=== PATIENT | female | born 1945 | race Caucasian/White ===

== ENCOUNTER 2020-02-14 08:06 | Outpatient (CLI) | payer MEDICARE, SELFPAY ==
--- NOTE | ~2020-02-14 | MM_ITS ---
EXAMINATION: MM screening [facility] BI w deena HISTORY: Screening TECHNIQUE: Craniocaudal and mediolateral oblique 3-D tomosynthesis images were obtained and synthetic 2-D images were generated. CAD analysis was submitted and interpreted. COMPARISON: Comparison to multiple prior studies sequentially, with oldest reviewed study dated 11/28. BREAST PARENCHYMAL COMPOSITION: There are scattered areas of fibroglandular density. FINDINGS: There is no evidence of suspicious mass, calcification, or architectural distortion to sugg est malignancy in either breast. There has been no suspicious interval change. IMPRESSION: 1. No mammographic evidence of malignancy. 2. Recommend routine screening mammography in one year. BI-RADS Category 1: Negative Reviewed, dictated and finalized at location A.
== END 2020-02-14 08:07 | disposition home or self-care (01) ==
LOC: ANHIMG 08:10
PROVIDERS: PCP Family Medicine; Visit Provider Physician Assistant
DX: Z12.31 Encounter for screening mammogram for malignant neoplasm of breast (principal)
CPT/HCPCS: 77063; 77067

== ENCOUNTER → 2020-03-02 14:26 | Outpatient (CLI) | payer MEDICARE, SELFPAY ==
--- NOTE | ~2020-03-02 | XR_ITS ---
EXAMINATION: XR knee LT 3V DATE: 03/02/2020 14:48 INDICATION: Left knee pain. TECHNIQUE: 3 views of left knee were obtained. COMPARISON: None. FINDINGS: There is lateral subluxation of patella. No fracture. There is moderate osteoarthritis of l ateral and patellofemoral compartments and mild osteoarthritis of medial compartment. No knee joint e ffusion. IMPRESSION: 1. Moderate left knee osteoarthritis. Reviewed, dictated and finalized at location A. 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
== END ==
PROVIDERS: PCP Family Medicine; Visit Provider Physician Assistant
DX: M17.12 Unilateral primary osteoarthritis, left knee (principal)
CPT/HCPCS: 73562

== ENCOUNTER 2021-02-24 07:54 | Outpatient (CLI) | payer MEDICARE, SELFPAY ==
--- NOTE | ~2021-02-24 | DEXA_ITS ---
Bone Density Report Name: Sherita Duke Age: 75 Sex: Female Ethnicity: White Date of : 1945 Indication: osteopenia; height loss; postmenopausal Referring Provider: HUGO WEATHERS Study: Bone densitometry was performed. Exam Date: February 24, 2021 Accession number: [id number] Bone Density: Region BMD T-score Z-score Classification AP Spine (L1, L2, L3) 0.865 -1.4 0.9 Osteopenia Femoral Neck (Left) 0.638 -1.9 0.1 Osteopenia Total Hip (Left) 0.725 -1.8 -0.1 Osteopenia Total Hip Bilateral Avg 0.740 -1.7 0.0 Osteopenia Femoral Neck (Right) 0.676 -1.6 0.4 Osteopenia Total Hip (Right) 0.753 -1.5 0.1 Osteopenia World Health Organization criteria for BMD impression classify patients as: Normal (T-score at or above -1.0), Osteopenia (T-score between -1.0 and -2.5), or Osteoporosis (T-score at or below -2.5). 10-year Fracture Risk(1): Major Osteoporotic Fracture 11% Hip Fracture 2.2% Reported Risk Factors: [place] (), Neck BMD=0.638, BMI=36.8 (1) FRAX(R) Version 3.08. Fracture probability calculated for an untreated patient. Fracture probability may be lower if the patient has received treatment. Previous Exams: Region Exam Age BMD T-score BMD Change BMD Change Date g/cm2 vs Baseline vs Previous AP Spine(L1, L2, L3) 02/24/2021 75 0.865 -1.4 0.094(12.1%)# 0.007(0.8%) 12/10/2015 70 0.859 -1.4 0.087(11.3%)# -0.016(-1.9%)# 11/28/2013 68 0.875 -1.3 0.104(13.4%)# 0.104(13.4%)# 06/11/2010 64 0.771 -2.2 Total Hip(Left) 02/24/2021 75 0.725 -1.8 -0.032(-4.2%)# -0.057(-7.3%)* 12/10/2015 70 0.782 -1.3 0.025(3.3%)# 0.004(0.5%)# 11/28/2013 68 0.778 -1.3 0.022(2.9%)# 0.022(2.9%)# 06/11/2010 64 0.756 -1.5 Total Hip(Right) 02/24/2021 75 0.753 -1.5 -0.038(-4.8%)# -0.056(-6.9%)* 12/10/2015 70 0.809 -1.1 0.018(2.2%)# 0.000(0.0%)# 11/28/2013 68 0.809 -1.1 0.018(2.3%)# 0.018(2.3%)# 06/11/2010 64 0.791 -1.2 *Denotes significance at 95% confidence level, LSC for AP Spine = 0.022 g/cm2, LSC for Total Hip = 0.027 g/cm2 Clinical Information Provided by Patient: Has used the following medications: Vitamin D, Calcium Patient maximum height was 64 Menopause Age: 52 No regular weight bearing exercise Drinks caffeinated beverages Onset of menses at age 15 Number of children 2 Impression: The patient has low bone mass, based on the Left Femoral Neck T-score
--- NOTE | ~2021-02-24 | MM_ITS ---
EXAMINATION: MM screening [facility] BI w deena HISTORY: Screening mammogram TECHNIQUE: Craniocaudal and mediolateral oblique 3-D tomosynthesis images were obtained and synthetic 2-D images were generated. CAD analysis was submitted and interpreted. COMPARISON: No prior mammogram is available for comparison at this institution. BREAST PARENCHYMAL COMPOSITION: There are scattered areas of fibroglandular density. FINDINGS: There is no evidence of suspicious mass, calcification, or architectural distortion to sugg est malignancy in either breast. There has been no suspicious interval change. IMPRESSION: 1. No mammographic evidence of malignancy. 2. Recommend routine screening mammography in one year. BI-RADS Category 1: Negative Reviewed, dictated and finalized at location A.
== END 2021-02-24 07:55 | disposition home or self-care (01) ==
LOC: ANHIMG 07:59
PROVIDERS: PCP Family Medicine; Visit Provider Family Medicine
DX: Z12.31 Encounter for screening mammogram for malignant neoplasm of breast (principal); Z78.0 Asymptomatic menopausal state; M85.89 Other specified disorders of bone density and structure, multiple sites
CPT/HCPCS: 77063; 77067; 77080

== ENCOUNTER 2022-04-11 10:40 | Outpatient (CLI) | payer MEDICARE, SELFPAY ==
--- NOTE | ~2022-04-11 | MM_ITS ---
EXAMINATION: MM screening e[facility] BI w deena HISTORY: Screening TECHNIQUE: Craniocaudal and mediolateral oblique 3-D tomosynthesis images were obtained and synthetic 2-D images were generated. CAD analysis was submitted and interpreted. COMPARISON: Comparison to multiple prior studies sequentially, with oldest reviewed study dated 12/09. BREAST PARENCHYMAL COMPOSITION: There are scattered areas of fibroglandular density. FINDINGS: There is no evidence of suspicious mass, calcification, or architectural distortion to sugg est malignancy in either breast. There has been no suspicious interval change. IMPRESSION: 1. No mammographic evidence of malignancy. 2. Recommend routine screening mammography in one year. BI-RADS Category 1: Negative Reviewed, dictated and finalized at location B. GER ERP
== END 2022-04-11 10:41 | disposition home or self-care (01) ==
LOC: ANHIMG 10:41
PROVIDERS: PCP Family Medicine; Visit Provider Family Medicine
DX: Z12.31 Encounter for screening mammogram for malignant neoplasm of breast (principal)
CPT/HCPCS: 77063; 77067

== ENCOUNTER → 2022-08-09 11:12 | Outpatient (CLI) | payer MEDICARE, SELFPAY ==
--- NOTE | ~2022-08-09 | XR_ITS ---
Left elbow Technique: AP, oblique, and lateral views were obtained. Clinical History: Pain Findings: No acute fracture or dislocation is seen. Osseous alignment is anatomic. Joint spaces are p reserved. Small coronoid process spur noted. There is no displacement of the fat pads, and soft tissu es are unremarkable. Impression: Minimal degenerative change, as above. Reviewed, dictated and finalized at location M. Impression: Minimal degenerative change, as above.
--- NOTE | ~2022-08-09 | XR_ITS ---
EXAMINATION: XR lumbar spine min 4V DATE: 08/09/2022 11:43 INDICATION: Low back pain, unspecified. TECHNIQUE: 6 views of lumbar spine were obtained. COMPARISON: None. FINDINGS: There is 19 degrees levoscoliosis of thoracolumbar spine. Vertebral body heights are normal . There is severely decreased disc height at L1-L2, mildly decreased disc height at L3-L4, and severe ly decreased disc height at L5-S1. There is multilevel severe facet joint osteoarthritis. IMPRESSION: 1. Severe lumbar spondylosis. 2. Thoracolumbar levoscoliosis. Reviewed, dictated and finalized at location A.
== END ==
PROVIDERS: PCP Family Medicine; Visit Provider Family Medicine
DX: M25.522 Pain in left elbow (principal); M47.896 Other spondylosis, lumbar region
CPT/HCPCS: 72110; 73080

== ENCOUNTER 2023-03-08 08:10 | Outpatient (CLI) | payer MEDICARE, SELFPAY ==
--- NOTE | ~2023-03-08 | US_ITS ---
US arterial ankle brachial ind INDICATION: Left lower extremity numbness. High cholesterol. TECHNIQUE: Segmental pressures and plethysmographic and Doppler waveforms of the brachial and lower e xtremity arteries were obtained. COMPARISON: None. FINDINGS: Right and left brachial artery pressures of 111 mm Hg and 114 mm Hg, respectively, are concordant (no rmal difference <= 30 mmHg). The right ankle-brachial index (MAGY) is 1.32 (normal >= 0.9-1.0). The right great toe-brachial index (TBI) is 0.48 (normal >= 0.60). The left MAGY is 1.28. The left TBI is 0.49. IMPRESSION: 1. Diminished bilateral toe brachial indices consistent with peripheral arterial disease. Reviewed, dictated and finalized at location A. ER HAND IMPRESSION: 1. Diminished bilateral toe brachial indices consistent with peripheral arteria l disease.
== END 2023-03-08 08:11 | disposition home or self-care (01) ==
PROVIDERS: PCP Family Medicine; Visit Provider Family Medicine
DX: I73.9 Peripheral vascular disease, unspecified (principal)
CPT/HCPCS: 93922

== ENCOUNTER 2023-05-02 07:34 | Outpatient (CLI) | payer MEDICARE, SELFPAY ==
--- NOTE | ~2023-05-02 | MM_ITS ---
EXAMINATION: MM screening [facility] BI w deena HISTORY: Screening mammogram TECHNIQUE: Craniocaudal and mediolateral oblique 3-D tomosynthesis images were obtained and synthetic 2-D images were generated. CAD analysis was submitted and interpreted. COMPARISON: 04/11/2022, 02/24/2021, 02/14/2020 BREAST PARENCHYMAL COMPOSITION: The breasts are almost entirely fatty. FINDINGS: No suspicious mass, calcification, or architectural distortion are identified in either franca ast to suggest malignancy. There has been no suspicious interval change. IMPRESSION: 1. No mammographic evidence of malignancy. 2. Recommend routine screening mammography in one year. BI-RADS Category 1: Negative Reviewed, dictated and finalized at location A. 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
== END 2023-05-02 07:35 | disposition home or self-care (01) ==
PROVIDERS: PCP Family Medicine; Visit Provider Family Medicine
DX: Z12.31 Encounter for screening mammogram for malignant neoplasm of breast (principal)
CPT/HCPCS: 77063; 77067

== ENCOUNTER 2023-09-22 12:39 | Outpatient (CLI) | payer MEDICARE, SELFPAY ==
--- NOTE | ~2023-09-22 | MR_ITS ---
MRI of the lumbar spine Clinical History: Back pain Technique: Axial T2-weighted images, and sagittal T1-weighted, T2-weighted, and T2 fat-sat images wer e acquired. Findings: There is no fracture or subluxation of the lumbar spine. Vertebral bodies maintain normal h eight and alignment. No bone marrow signal abnormality seen. At L1-L2, there is advanced degenerative disc narrowing. There is mild disc bulge with moderate to ad vanced facet arthropathy. No central canal stenosis. There is severe right neural foraminal narrowing and mild left neural foraminal narrowing. At L2-L3, there is minimal disc bulge and moderate facet arthropathy. No central canal stenosis. Ther e is mild bilateral neural foraminal narrowing. At L3-L4, there is mild disc bulge and severe facet arthropathy. No reymundo central canal stenosis. The re is moderate to severe left neural foraminal narrowing. Right neural foramen preserved. At L4-L5, there is diffuse disc bulge with advanced facet arthropathy. No reymundo central canal stenosi s or neural foraminal narrowing. At L5-S1, there is moderate degenerative disc narrowing with mild disc bulge and advanced facet arthr opathy. No central canal stenosis. There is moderate left neural foraminal narrowing and mild right n eural foraminal narrowing. Paravertebral soft tissues are unremarkable. Impression: Moderate degenerative spondylosis overall, as detailed above. There is neural foraminal narrowing whi ch is worse at L1-L2, L3-L4, and L5-S1. Reviewed, dictated and finalized at [facility]. Impression: Moderate degenerative spondylosis overall, as detailed above. There is neural f oraminal narrowing which is worse at L1-L2, L3-L4, and L5-S1.
== END 2023-09-22 12:40 ==
LOC: MICIMG 12:40
PROVIDERS: PCP Family Medicine; Visit Provider Family Medicine
DX: G89.29 Other chronic pain (principal); M54.50 Low back pain, unspecified; M43.06 Spondylolysis, lumbar region
CPT/HCPCS: 72148

== ENCOUNTER 2024-04-19 14:27 | Emergency (ER) | payer MEDICARE, SELFPAY ==
[2024-04-19] VITALS (8 sets, daily range): BP systolic 137–175; BP diastolic 70–96; PULSE 71–91; RESP 13–20; TEMP 36.1–36.6; O2SAT 95–100
--- NOTE | ~2024-04-19 | XR_ITS ---
EXAMINATION: XR knee LT 3V DATE: 04/19/2024 15:31 INDICATION: Left knee pain. Fall. TECHNIQUE: 3 views of left knee were obtained. COMPARISON: Left knee radiographs 03/02/20 FINDINGS: Alignment is normal. No fracture. There is moderate tricompartmental osteoarthritis. No kne e joint effusion. IMPRESSION: 1. Moderate left knee osteoarthritis. Reviewed, dictated and finalized at location A. 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
--- NOTE | ~2024-04-19 | XR_ITS ---
EXAMINATION: XR wrist LT 2V DATE: 04/19/2024 15:31 INDICATION: Left wrist pain and swelling. Fall. TECHNIQUE: 2 views of left wrist were obtained. COMPARISON: None. FINDINGS: There is a comminuted fracture of distal radius. The main distal fracture fragment demonstr ates 8 mm palmar displacement, impaction, and palmar angulation. There is 26 degrees palmar tilt of t he distal articular surface. There is an avulsion fracture of the ulnar styloid. There is severe oste oarthritis of first carpometacarpal joint. IMPRESSION: 1. Comminuted fracture of distal radius. 2. Avulsion fracture of the ulnar styloid. Reviewed, dictated and finalized at location A. 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
--- NOTE | ~2024-04-19 | XR_ITS ---
EXAMINATION: XR wrist LT 2V DATE: 04/19/2024 16:51 INDICATION: Distal left radius fracture status post reduction. TECHNIQUE: 2 views of left wrist were obtained. COMPARISON: Left wrist radiographs at 3:26 PM FINDINGS: There is a comminuted fractured of distal radius with involvement of the distal articular s urface. The main distal fracture fragment demonstrates near-anatomic alignment. There is a nondisplac ed fracture of the ulnar styloid. Cast material obscures fine bone detail. There is severe osteoarthr itis of first carpometacarpal joint. IMPRESSION: 1. Comminuted fracture of distal radius in near-anatomic alignment. 2. Avulsion fracture of the ulnar styloid. Reviewed, dictated and finalized at location A. SH SPECIALIST
[2024-04-19] MEDS: MORPHINE SULFATE (*CRX) 4 MG/ML INJ IV PUSH (15:38)
--- NOTE | 2024-04-19 16:02 | ED_ITS ---
HPI - Extremity Injury (Upper) General Chief Complaint: Extremity Injury, Upper Stated Complaint: fall/ left wrist injury Time Seen by Provider: 04/19/24 15:09 History of Present Illness HPI narrative: Patient is a 78-year-old female who presents ER with left wrist pain and deformity. Trip and fall while trying to let her dog and. She tripped over a blanket that she was wrapped up in. No head injury. Reports mild pain to left knee. No blood thinners. No additional concerns. No numbness or in the hand. Related Data Allergies Allergy/AdvReac Type Severity Reaction Status Date / Time atorvastatin Allergy Unknown Muscle Pain Verified 04/19/24 15:37 simvastatin Allergy Unknown muscle pain Verified 04/19/24 15:37 Review of Systems Review of Systems: All systems reviewed & are unremarkable except as noted in HPI and below Constitutional: Constitutional: Reports no additional constitutional complaints Musculoskeletal: Musculoskeletal: Denies back pain, Reports arthralgias, Reports joint swelling and Denies muscle cramps Integumentary/Breasts: Skin/Breast: Reports system reviewed and no additional complaints, except as docu Neurologic: Reports system reviewed and no additional complaints, except as documented [facility] Past Medical History Medical History Allergic rhinitis Chronic low back pain Gastroesophageal reflux Hypertension Mixed hyperlipidemia Ovarian cyst (~1977) Pre-diabetes Vitamin D deficiency Surgical History Surgical History History of lumpectomy (~1988) History of removal of ovarian cyst (~1977) History of rotator cuff surgery (~2007) Hx of colonoscopy (~2005) Family History Family History Other Diabetes mellitus Family history of Alzheimer's disease Family history of emphysema Hypertension Social History Social History Smoking status: Never smoker Second hand tobacco smoke exposure: No Alcohol intake: never Substance use: never Substance use type: does not use Lack of Transportation: No Lack of Food: Never True Current Housing: I Have Housing Concerned About Future Housing: No Difficulty Paying Gas/Electric Bills: No Difficulty Paying for Meds: No Currently Unemployed: No Difficulty w/ Childcare or Family Care: No Living arrangements: with family Occupation/Education: retired Gender identity (if verbalized by the patient): Female Sexual Orientation (if Verbalized by the Patient): Straight or Heterosexual Spiritual care concerns: No Agree to blood products: Yes Exam Narrative: GENERAL: Well-appearing, well-nourished, and in no acute distress. HEAD: Normocephalic, atraumatic. EYES: PERRL and EOMI. ENT: Mucous membranes moist. CHEST: Clear to auscultation. No respiratory distress. HEART: Regular rate and rhythm. Normal peripheral pulses. EXTREMITIES: Left wrist deformity with normal pulses and normal sensation. Tender at the left wrist and decreased range of motion. No deformity to the right upper extremity, the proximal left upper extremity, or lower extremities. Mild tenderness over the left knee. SKIN: Warm, dry, no rash. NEURO: Alert and oriented x3. PSYCH: Normal mood and affect. Course Course Emergency Course: Tolerated reduction well. Orthopedic surgery consulted. Dr. Montanez spoke with patient at bedside. D/c home with sling and pain meds. Vital Signs Vital signs: Vital Signs Temperature 97.1 F L 04/19/24 14:34 Pulse Rate 91 04/19/24 14:34 Respiratory Rate 18 04/19/24 14:34 Blood Pressure 151/88 H 04/19/24 14:34 Pulse Oximetry 96 04/19/24 14:34 Temperature 97.7 F 04/19/24 16:45 Pulse Rate 73 04/19/24 16:45 Respiratory Rate 13 04/19/24 16:45 Blood Pressure 160/96 H 04/19/24 16:45 Pulse Oximetry 99 04/19/24 16:45 Oxygen Delivery Nasal Cannula 04/19/24 16:45 Oxygen Flow Rate 2 04/19/24 16:45 MDM - Extremity Injury (Upper) Imaging Data Radiologist's impression: ITS Impressions Wrist X-Ray 04/19/24 15:40 IMPRESSION: 1. Comminuted fracture of distal radius. 2. Avulsion fracture of the ulnar styloid. Knee X-Ray 04/19/24 15:43 IMPRESSION: 1. Moderate left knee osteoarthritis. Wrist X-Ray 04/19/24 16:51 IMPRESSION: 1. Comminuted fracture of distal radius in near-anatomic alignment. 2. Avulsion fracture of the ulnar styloid. Discharge Plan Discharge Clinical Impression: Fracture of wrist, Fracture of ulnar styloid Patient Disposition: Home, Self-Care Condition: Stable Instructions: Arm Fracture in Adults (ED), How to Use a Sling (ED), Splint Care (ED) Additional Instructions: Return ER if you have chest pain with shortness of breath, you fall and suffered a new injury, or you have additional concerns. Wear your brace /splint at all times. Elevate your arm to decrease swelling. Follow up with Orthopedic surgery listed below. Patient Language: Belarusian Prescriptions: New hydrocodone-acetaminophen 5-325 mg tablet 1 tablet PO Q6H PRN (Reason: pain) Qty: 20 0RF No Action omeprazole 40 mg capsule,delayed release(DR/EC) 40 mg PO DAILY Qty: 90 2RF clobetasol 0.05 % cream 1 applic topical BID Qty: 180 0RF nifedipine 30 mg tablet extended release 24hr 30 mg PO DAILY Qty: 90 2RF levocetirizine 5 mg tablet 5 mg PO DAILY Qty: 90 3RF losartan 25 mg tablet 25 mg PO DAILY Qty: 90 3RF alprazolam 0.5 mg tablet See Rx Instructions PO .COMPLEX Qty: 5 0RF Rx Instructions: Take 1-2 tab 30 minutes before procedure orally; rosuvastatin 5 mg tablet 2.5 mg PO DAILY Qty: 45 3RF gabapentin 300 mg capsule 300 mg PO BID Qty: 180 1RF zolpidem 10 mg tablet 10 mg PO .at night Qty: 90 1RF diclofenac sodium 50 mg tablet,delayed release (DR/EC) See Rx Instructions .ROUTE .COMPLEX Qty: 180 1RF Dose Instruction: TAKE 1 TABLET BY MOUTH TWO TIMES DAILY Rx Instructions: TAKE 1 TABLET BY MOUTH TWO TIMES DAILY Follow-up/Referrals: Shantel Wilson MD [Primary Care Provider] - Kayden Montanez MD [Physician] - 1 Week
--- NOTE | 2024-04-19 16:51 | PC.NURSE ---
50mg of propofol was given at 1635 by EDP, Dr. Kay
--- NOTE | 2024-04-19 17:04 | PM.CNOR ---
Assessment and Plan Assessment and plan (1) Mata's fracture of left radius: Qualifiers: Encounter type: initial encounter Fracture type: closed Qualified Code(s): S52.542A - Mata's fracture of left radius, initial encounter for closed fracture Code(s): S52.542A - Mata's fracture of left radius, initial encounter for closed fracture Status: Acute Assessment and Plan: Displaced comminuted volar displaced distal radius extra-articular fracture. Excellent reduction in the emergency department. The fracture has some comminution and inherent instability. Follow-up x-rays weekly. If the reduction is maintained will continue with conservative treatment. Otherwise will proceed with ORIF of the wrist with volar plate. I discussed the care plan with the patient and her . Risks of displacement, the importance of elevation, and limited use of the hand reviewed. My office will reach out to her on Monday to arrange follow-up. History of Present Illness HPI Consult date: 04/19/24 Consult reason: fracture Chief complaint: fall/ left wrist injury Narrative: 78-year-old female fell on the outstretched hand. Complains of pain and swelling in the left wrist. Denies other associated injuries. Underwent closure emergency department. I was consulted by the emergency department physician. Review of Systems Review of Systems: All systems reviewed & are unremarkable except as noted in HPI and below PMFSH Past Medical History Medical History Chronic low back pain Ovarian cyst (~1977) Allergic rhinitis Pre-diabetes Vitamin D deficiency Gastroesophageal reflux Mixed hyperlipidemia Hypertension Surgical History Surgical History History of removal of ovarian cyst (~1977) History of lumpectomy (~1988) Hx of colonoscopy (~2005) History of rotator cuff surgery (~2007) Family History Family History Other Diabetes mellitus Family history of Alzheimer's disease Family history of emphysema Hypertension Social History Social History Smoking status: Never smoker Second hand tobacco smoke exposure: No Alcohol intake: never Substance use: never Substance use type: does not use Lack of Transportation: No Lack of Food: Never True Current Housing: I Have Housing Concerned About Future Housing: No Difficulty Paying Gas/Electric Bills: No Difficulty Paying for Meds: No Currently Unemployed: No Difficulty w/ Childcare or Family Care: No Living arrangements: with family Occupation/Education: retired Gender identity (if verbalized by the patient): Female Sexual Orientation (if Verbalized by the Patient): Straight or Heterosexual Spiritual care concerns: No Agree to blood products: Yes Meds Home Medications and Allergies Home Medications ?Medication ?Instructions ?Recorded ?Confirmed ?Type clobetasol 0.05 % topical cream 1 applic topical BID #180 grams 06/02/21 03/20/24 Rx levocetirizine 5 mg tablet 5 mg PO DAILY #90 tabs 04/24/23 03/20/24 Rx nifedipine 30 mg tablet,extended 30 mg PO DAILY #90 tabs 04/24/23 03/20/24 Rx release 24 hr losartan 25 mg tablet 25 mg PO DAILY #90 tabs 08/09/23 03/20/24 Rx alprazolam 0.5 mg tablet See Rx Instructions PO .COMPLEX #5 09/15/23 03/20/24 Rx tabs rosuvastatin 5 mg tablet 2.5 mg (1/2 x 5 mg) PO DAILY #45 10/31/23 03/20/24 Rx tabs gabapentin 300 mg capsule 300 mg PO BID #180 caps 11/17/23 03/20/24 Rx omeprazole 40 mg capsule,delayed 40 mg PO DAILY #90 caps 12/14/23 12/14/23 Rx release zolpidem 10 mg tablet 10 mg PO .at night #90 tabs 01/15/24 03/20/24 Rx diclofenac sodium 50 mg See Rx Instructions .Route 03/11/24 03/20/24 Rx tablet,delayed release .COMPLEX #180 tabs hydrocodone 5 mg-acetaminophen 325 1 tablet PO Q6H PRN pain #20 tabs 04/19/24 Rx mg tablet Allergies Allergy/AdvReac Type Severity Reaction Status Date / Time atorvastatin Allergy Unknown Muscle Pain Verified 04/19/24 15:37 simvastatin Allergy Unknown muscle pain Verified 04/19/24 15:37 Vital Signs Vital Signs - 24 hr 04/19/24 14:34 04/19/24 16:21 04/19/24 16:35 Temperature 36.2 C L 36.6 C 36.6 C Pulse Rate 91 74 Pulse Rate [Monitor] 81 Respiratory Rate 18 17 18 Blood Pressure 151/88 H 175/83 H Blood Pressure [Right Arm] Pulse Oximetry 96 95 98 Oxygen Delivery Nasal Cannula Oxygen Flow Rate 2 04/19/24 16:35 04/19/24 16:40 04/19/24 16:45 Temperature 36.6 C 36.1 C L 36.5 C Pulse Rate Pulse Rate [Monitor] 78 75 73 Respiratory Rate 13 16 13 Blood Pressure Blood Pressure [Right Arm] 169/86 H 162/95 H 160/96 H Pulse Oximetry 99 98 99 Oxygen Delivery Nasal Cannula Nasal Cannula Nasal Cannula Oxygen Flow Rate 2 2 2 04/19/24 17:00 Temperature 36.3 C L Pulse Rate Pulse Rate [Monitor] 78 Respiratory Rate 20 Blood Pressure Blood Pressure [Right Arm] 161/90 H Pulse Oximetry 99 Oxygen Delivery Nasal Cannula Oxygen Flow Rate 2 Exam Narrative: Elderly patient in no distress. Alert and oriented. On 2 L nasal oxygen. Long-arm splint appropriately placed. Capillary refill brisk. Light touch sensation intact. Results Labs Labs: All other labs normal.
== END 2024-04-19 17:37 | disposition home or self-care (01) ==
PROVIDERS: Emergency Provider Emergency Medicine; PCP Family Medicine
DX: S52.542A Smith's fracture of left radius, initial encounter for closed fracture (principal); S52.612A Displaced fracture of left ulna styloid process, initial encounter for closed fracture; I10 Essential (primary) hypertension; E78.2 Mixed hyperlipidemia; E55.9 Vitamin D deficiency, unspecified; K21.9 Gastro-esophageal reflux disease without esophagitis; R73.03 Prediabetes; M17.12 Unilateral primary osteoarthritis, left knee; Z79.899 Other long term (current) drug therapy; W01.0XXA Fall on same level from slipping, tripping and stumbling without subsequent striking against object, initial encounter
CPT/HCPCS: 25605; 25624; 73100; 73562; 96374; 96375; 99284; 99285; A4565; J2270

== ENCOUNTER 2024-04-30 11:18 | Outpatient (CLI) | payer MEDICARE, SELFPAY ==
--- NOTE | 2024-04-30 11:28 | ECG_ITS ---
Test Date: 2024-04-30 11:32:02 Measurements Intervals [place] Rate: 71 P: 44 OR: 171 QRS: -12 QRSD: 92 T: 15 QT: 387 QTc: 423 Interpretive Statements SINUS RHYTHM WITH SINUS ARRHYTHMIA LOW QRS VOLTAGE IN PRECORDIAL LEADS [QRS DEFLECTION < 1.0 mV IN CHEST LEADS] MODERATE VOLTAGE CRITERIA FOR LVH, CONSIDER NORMAL VARIANT [MEETS CRITERIA IN ONE OF: R(aVL), S(V1), R(V5), R(V5/V6)+S(V1)] POSSIBLE ANTERIOR MYOCARDIAL INFARCTION [30 ms Q WAVE IN V3/V4, OR R < 0.2 mV IN V4], OF INDETERMINATE AGE No previous ECG available for comparison Electronically Signed On 04-30-2024 22:44:19 [employer] by Lyudmila Luis M.D.
== END 2024-04-30 11:19 | disposition home or self-care (01) ==
LOC: ANHSURGERY 11:23
PROVIDERS: PCP Family Medicine; Visit Provider Orthopaedic Surgery
DX: R94.31 Abnormal electrocardiogram [ECG] [EKG] (principal); I10 Essential (primary) hypertension
CPT/HCPCS: 93005

== ENCOUNTER 2024-05-03 00:18 | Day surgery (SDC) | payer MEDICARE, SELFPAY ==
--- NOTE | 2024-04-29 13:37 | PC.NURSE ---
Report to the Outpatient Waiting Room, entrance under the green pavilion located off [facility], at time _10 am on date _05/03/24 . Planned Procedure Time: _1200 noon .? Time changes happen often and if your time is changed the preop area will call you the afternoon before. - You and your visitor will be asked to self-screen and do not enter if you have any COVID symptoms. Please call surgeon if you need to reschedule. - A mask is optional within the hospital at this time. Patients may have clear liquids (water, carbonated beverages, clear teas, apple juice) until 3 hours prior to surgery( 9 am) with a maximum of 20 ounces. - No food from midnight until time of surgery and no smoking. This includes no chewing gum, candy or mints. - Infants may have breast milk until 4 hours before surgery, infant formula 6 hours prior to surgery. - Children will be allowed to drink immediately following surgery.? If applicable, please bring a bottle or sippy cup to assist with drinking. Juice, water, soda, and popsicles are readily available.? For infants on formula, please bring formula the day of surgery.? Pacifiers are allowed. Take only the following medications with a SIP of water on the morning of surgery: _GABAPENTIN DO NOT STOP ANY OF YOUR OTHER PRESCRIPTION MEDICATIONS PRIOR TO SURGERY EXCEPT THE FOLLOWING Medications to discontinue per physician ____DICLOFENAC HOLD 7 DAYS PRE OP .LAST DOSE 04/29/24 . HOLD ALL VITAMINS AND SUPPLEMENTS 3 DAYS PRE OP.LAST DOSE Please no make-up, nail lao, hairspray, perfume, deodorant, or body powder the day of surgery.? No jewelry (including any body piercings) or valuables the day of surgery, leave them at home.? Please take a shower or bath the night before, or the morning of, surgery with an antibacterial soap.? Wear comfortable, loose fitting clothing.? Children are encouraged to wear pajamas. - Jewelry must be removed prior to entering the operating room.? Rings and piercings that are not removed may be cut off. - The hospital will not accept responsibility for valuables.? - Please leave all valuables, including medications, at home the day of surgery. If you are going home after surgery, a licensed truss driver helper must drive you home.? - NO public transportation without another adult if you receive anesthesia. - We recommend that an adult stay with you for 24 hours following discharge. - We also recommend that you do not drive, make important decision, drink alcoholic beverages, or take any drugs that were not prescribed by your health care provider for at least 24 hours after your discharge time. For Pediatric surgeries, we recommend two adults accompany the child home. Follow any additional instructions given to you from your surgeon. Telephone instructions given to __PT and asked if any additional questions and then verbalized understanding.
[2024-04-29 13:59] VITALS: BMI 37.2
[2024-05-03] VITALS (8 sets, daily range): BP systolic 134–157; BP diastolic 79–97; PULSE 74–88; RESP 10–16; TEMP 36.2–36.6; O2SAT 91–99
--- NOTE | ~2024-05-03 | XR_ITS ---
EXAMINATION: XR surgery orthopedic DATE: 05/03/2024 13:49 INDICATION: Distal left radius fracture. TECHNIQUE: 3 intraoperative fluoroscopic views of left wrist were obtained. I was not present. Fluoro scopy exposure time was 35 seconds. COMPARISON: Left wrist radiographs 04/26/2024 FINDINGS: There is a fracture of distal radius. The main distal fracture fragment demonstrates near-a natomic alignment with internal fixation with volar plate and screws. There is a fracture of the ulna r styloid. There is severe osteoarthritis of first carpometacarpal joint. IMPRESSION: 1. Comminuted fracture of distal radius status post open reduction internal fixation. 2. Fracture of the ulnar styloid. Reviewed, dictated and finalized at location A. TECHNICIAN IMPRESSION: 1. Comminuted fracture of distal radius status post open reduction internal fix ation. 2. Fracture of the ulnar styloid.
[2024-05-03] MEDS: KETOROLAC 15 MG/ML VIAL (*BKC) IV PUSH (10:00)
[2024-05-03] MEDS: ACETAMINOPHEN 500 MG TABLET 1000 MG PO (10:00)
--- NOTE | 2024-05-03 10:50 | WPDANESEPPF ---
Anes - Initial Pre Proc Eval Procedure: Operation Date: 05/03/24 11:30 Proposed Procedures p Open Reduction Internal Fixation Left Distal Radius - Kayden Montanez MD Date/Time: 05/03/24 10:50 Surgeon: Kayden Montanez MD Pre Op Diagnosis: left distal radius fx Patient Data Age: 78 Gender: F Height: 1.6 m Weight: 100 kg Last Vital Signs Temp 36.6 C 05/03/24 10:00 Pulse 88 05/03/24 10:00 Resp 14 05/03/24 10:00 BP 156/97 H 05/03/24 10:00 Pulse Ox 96 05/03/24 10:00 O2 Del Method Room Air 05/03/24 10:00 Allergies Allergy/AdvReac Type Severity Reaction Status Date / Time atorvastatin Allergy Unknown Muscle Pain Verified 05/03/24 10:19 simvastatin Allergy Unknown muscle pain Verified 05/03/24 10:19 Home Medications ?Medication ?Instructions ?Recorded ?Confirmed ?Type levocetirizine 5 mg tablet 5 mg PO DAILY #90 tabs 04/24/23 04/29/24 Rx nifedipine 30 mg tablet,extended 30 mg PO DAILY #90 tabs 04/24/23 04/29/24 Rx release 24 hr losartan 25 mg tablet 25 mg PO DAILY #90 tabs 08/09/23 04/29/24 Rx alprazolam 0.5 mg tablet See Rx Instructions PO .COMPLEX #5 09/15/23 04/29/24 Rx tabs rosuvastatin 5 mg tablet 2.5 mg (1/2 x 5 mg) PO DAILY #45 10/31/23 04/29/24 Rx tabs gabapentin 300 mg capsule 300 mg PO BID #180 caps 11/17/23 04/29/24 Rx omeprazole 40 mg capsule,delayed 40 mg PO DAILY #90 caps 12/14/23 04/29/24 Rx release zolpidem 10 mg tablet 10 mg PO .at night #90 tabs 01/15/24 04/29/24 Rx diclofenac sodium 50 mg See Rx Instructions .Route 03/11/24 04/29/24 Rx tablet,delayed release .COMPLEX #180 tabs hydrocodone 5 mg-acetaminophen 325 1 tablet PO Q6H PRN pain #20 tabs 04/19/24 04/29/24 Rx mg tablet calcium 600 mg capsule mg PO DAILY 04/29/24 History cholecalciferol (vitamin D3) 25 1,000 unit PO DAILY 04/29/24 04/29/24 History mcg (1,000 unit) capsule cyanocobalamin (vitamin B-12) 1,000 mcg PO DAILY 04/29/24 04/29/24 History 1,000 mcg capsule omega 5-ypv-asc-fish oil 100 2 cap PO DAILY 04/29/24 04/29/24 History mg-160 mg-1,000 mg capsule (Fish Oil) Patient hx anesthesia problems: none Family hx anesthesia problems: none Results Review: All pre-operative results and documents have been reviewed as part of the pre-operative evaluation. [facility] Past Medical History Medical History Chronic low back pain Ovarian cyst (~1977) Allergic rhinitis Pre-diabetes Vitamin D deficiency Gastroesophageal reflux Mixed hyperlipidemia Hypertension Surgical History Surgical History History of removal of ovarian cyst (~1977) History of lumpectomy (~1988) Hx of colonoscopy (~2005) History of rotator cuff surgery (~2007) Family History Family History Other Diabetes mellitus Family history of Alzheimer's disease Family history of emphysema Hypertension Social History Social History (Updated 04/26/24 @ 11:11 by Manjula Pro CMA) Smoking status: Never smoker Second hand tobacco smoke exposure: No Alcohol intake: current Drinks per week: 1 Alcohol use details: WINE Substance use: never Substance use type: does not use Do You Feel Safe in your Home?: Yes Lack of Transportation: No Lack of Food: Never True Current Housing: I Have Housing Concerned About Future Housing: No Difficulty Paying Gas/Electric Bills: No Difficulty Paying for Meds: No Currently Unemployed: No Education: High School Diploma/GED Difficulty w/ Childcare or Family Care: No Living arrangements: alone Occupation/Education: retired Gender identity (if verbalized by the patient): Female Sexual Orientation (if Verbalized by the Patient): Straight or Heterosexual Spiritual care concerns: No Agree to blood products: Yes Anes - Eval Final PreProcedure Day of Procedure 05/03/24 10:50 Patient weight: obese Heart: regular rate and rhythm Lungs: clear to auscultation Airway: Mallampati scale class II Neurological: alert and oriented Last oral intake: >/= 8 hours ASA classification: III Emergent: no Anesthetic plan: proceed Anesthesia type and monitoring: general LMA and standard monitoring Results Review: All pre-operative results and documents have been reviewed as part of the pre-operative evaluation. Informed Consent: The patient's anesthetic plan and its attendant risks and benefits were discussed with the patient/family/POA. Questions were solicited and answers provided to the satisfaction of the patient/family/POA.
[2024-05-03] MEDS: LACTATED RINGERS 1,000 ML 30 ML IV CONT ×2 (11:30→14:12)
--- NOTE | 2024-05-03 12:04 | WPDHPUPDATE1 ---
History and Physical Update Update Date/Time: 05/03/24 12:04 History and Physical has been reviewed, including an updated exam of the patient. There are NO changes in the patient's condition. Risks, benefits, and alternatives have been discussed and questions answered. Patient agrees to proceed with procedure.
[2024-05-03] MEDS: ceFAZolin 2 GM/D5W 50 ML 2 GM/50 ML BAG IVPB (12:17)
[2024-05-03] MEDS: BUPIVACAINE/EPINEPHRINE 0.5% 50 ML VIAL 30 ML INFILTRATE (12:58)
[2024-05-03] MEDS: fentaNYL CITRATE INJ (*CRX) 100 MCG/2 ML VIAL 25 MCG IV PUSH ×4 (14:30→15:00)
[2024-05-03] MEDS: ONDANSETRON INJ 4 MG/2 ML VIAL IV PUSH (15:20)
[2024-05-03] MEDS: oxyCODONE HCL (*CRX) 5 MG TAB IR PO (15:54)
--- NOTE | 2024-05-03 16:18 | W.PM.PROC2 ---
Procedure Note - Detailed Date of Procedure 05/03/24 Pre-op Diagnosis Left distal radius extra-articular fracture with volar displacement and comminution. Post-op Diagnosis Same Procedure Performed ORIF left distal radius extra-articular displaced fracture, with volar plate. Surgeon Kayden Montanez MD Anesthesia General Findings Volar comminution reduced nicely. Satisfactory bone quality. Description of Procedure Preoperative antibiotics were given. A general anesthetic was administered. The hand was prepped and draped in the usual sterile fashion with a well-padded tourniquet. The limb was exsanguinated and the tourniquet inflated to 250 millimeters of mercury. A longitudinal incision was created over the flexor carpi radialis tendon. Dissection was brought down through the sheath. The pronator quadratus was identified and released off of the radius. The fracture was carefully exposed and cleared of debris. Reduction was obtained with traction and manipulation. Fluoroscopy was used to confirm anatomic reduction. The volar plate was placed on the radius and the position was confirmed. Provisional pins were placed. The dynamic cortical screw was applied. The plate was fine tuned and fluoroscopy was use to confirm that the joint would not be violated. Subsequent distal pins and screws were placed, followed by the proximal row. The wound was irrigated and closed. 3-0 Monocryl suture was used to reapproximate the pronator quadratus. The tourniquet was released and meticulous hemostasis was confirmed. The skin was closed with 3-0 Monocryl suture and a running 4-0 Monocryl suture. Steri-Strips were applied on the skin. A sterile bulky dressing with a volar splint was applied. Implants Arthrex standard 3 hole distal radius plate. Combination of 2.4 mm locking screws and pegs. Proximal 3.5 mm locking and cortical screws. Estimated Blood Loss 10 Drains No Packing No Pathology None sent Complications No immediate complications Condition Stable Disposition PACU [facility] Billing Surgery - Charge Forward: Surgery Billing
== END 2024-05-03 16:16 | disposition home or self-care (01) ==
PROVIDERS: PCP Family Medicine; Visit Provider Orthopaedic Surgery
PROC: (CPT 25575; principal; 2024-05-03 11:30)
DX: S52.542A Smith's fracture of left radius, initial encounter for closed fracture (principal); R73.03 Prediabetes; E55.9 Vitamin D deficiency, unspecified; K21.9 Gastro-esophageal reflux disease without esophagitis; E78.2 Mixed hyperlipidemia; I10 Essential (primary) hypertension; G89.29 Other chronic pain; M54.50 Low back pain, unspecified; W19.XXXA Unspecified fall, initial encounter; E66.9 Obesity, unspecified; Z68.39 Body mass index [BMI] 39.0-39.9, adult; Z79.891 Long term (current) use of opiate analgesic; Z98.890 Other specified postprocedural states
CPT/HCPCS: 25607; 99199; A9270; C1713; C1769; J0690; J1100; J1885; J2003; J2405; J2704; J3010; J7120

== ENCOUNTER 2024-06-07 08:54 | Outpatient (CLI) | payer MEDICARE, SELFPAY ==
--- NOTE | ~2024-06-07 | MM_ITS ---
EXAMINATION: MM screening eboni BI w deena HISTORY: Screening mammogram TECHNIQUE: Craniocaudal and mediolateral oblique 3-D tomosynthesis images were obtained and synthetic 2-D images were generated. CAD analysis was submitted and interpreted. COMPARISON: 05/02/2023, 04/11/2022, 02/24/2021 BREAST PARENCHYMAL COMPOSITION:Not Dense. The breasts are almost entirely fatty FINDINGS: No suspicious mass, calcification, or architectural distortion are identified in either franca ast to suggest malignancy. There has been no suspicious interval change. IMPRESSION: No mammographic evidence of malignancy. Recommend routine screening mammography in one year. BI-RADS Category 1: Negative Reviewed, dictated and finalized at location . CIPAL MECHANICAL ENGINEER
--- OUTSIDE RECORDS SUMMARY | 2024-06-07 09:17 | XMS_ITS | Continuity of Care Document ---
Author Organization [facility] [place] [address] [place] [address] Phone Care Team Providers Care Supervisor Car And Yard Name Role Phone Boyce OD, Emre Unavailable Unavailable Procedures Procedure Date Eye Exam & Treatment Refraction Office/outpatient Visit, Est CL Replacement - Vistakon Disp W/BW Soft Tax - Medical Eye Exam, New Patient Refraction Advance Directives Directive Yes / No Effective Date File Name No Information Encounters Encounter Description Practice Location Reason(s) For Visit Diagnoses Date Provider Providers Copied on Encounter [facility], [address] [place] [address] [address], [place], [place], [id number], [place] tel:[phone] [facility] No Information Oct-1 3-201 0 Boyce OD Emre. [address], [place], [place], [facility], [place]. tel:[phone] Office/outpat ient Visit, Est [facility], [address] [place] [address] [address], [place], [place], [id number], [place] tel:[phone] [facility] No Information Oct-0 6-200 9 Boyce OD Emre. [address] [facility] , [address], [place], [address], [place]. tel:[phone] [facility], [address] [place] [address] [address], [place], [place], [id number], tel:[phone] [facility] No Information 8-200 8 Boyce OD Emre. [address] , [address], [place], [address], [place]. tel:[phone] [facility], [address] [facility], [place], [place], [id number], tel:[phone] [facility] No Information 2-200 8 Boyce OD Emre. [address] [facility] , [address], [place], [address], [place]. tel:[phone] Family History Family Member Type Diagnosis Age At Onset No Information Payers Payer name Insurance type Covered alliance party ID Authorgwena everettparris(s) [employer] Vision Plan CI [id number] Social History Type Description Quantity Date Captured Comments Sex Female Smoking Status No Information Chief Complaint And Reason For Visit No Information Reason For Referral Reason For Referral No Information History Of Present Illness Encounter Date Complaint History Of Prese nt Illness No Information Functional Status Date Functional Assessmen t No Information Instructions Date Instruction Additional Infor mation No Information Assessments Type Assessment Date No Information Patient Care Teams Name Effective Dates (start - stop) Status Members No Information
--- OUTSIDE RECORDS SUMMARY | 2024-06-07 09:17 | XMS_ITS | Patient Health Summary ---
Author Organization [facility] Address [address] [place] [address] Care Team Providers Care Oil Field Operator Name Role Phone Shantel Wilson MD Primary Care Provider Note from [facility],non-owned Affiliates and Associated Physician Practices is amultiple site organization consisting of ambulatory clinics and hospital sitesin [place], [place], [place] and [place]. This disclosure is being madepursuant to the Care Everywhere program and may not contain all information available regarding this patient. Last updated 18.[facility] Allergies No known active allergies Medications * Be aware that medications may not be up to date on this document. Alwaysverify current medications with the patient. * NIFEDIPINE PO * LOSARTAN POTASSIUM PO * GABAPENTIN PO * DICLOFENAC PO * Rosuvastatin Calcium 10 MG CPSP Social History Tobacco Use Types Packs/Day Years Used Date Smoking Tobacco: Never Smokeless Tobacco: Never Sex and Gender Information Value Date Recorded Sex Assigned at Not on file Gender Identity Not on file Sexual Orientation Not on file Last Filed Vital Signs Vital Sign Reading Time Taken Comments Blood Pressure 126/80 06/06/2019 11:01 AM PHARMACY DELIVERY DRIVER Pulse 122 06/06/2019 11:01 AM PHARMACY DELIVERY DRIVER Temperature 37.1 C (98.7 F) 06/06/2019 11:01 AM PHARMACY DELIVERY DRIVER Respiratory Rate 16 06/06/2019 11:01 AM PHARMACY DELIVERY DRIVER Oxygen Saturation 95% 06/06/2019 11:01 AM PHARMACY DELIVERY DRIVER Inhaled Oxygen Concentration - - Weight 79.4 kg (175 lb) 06/06/2019 11:01 AM PHARMACY DELIVERY DRIVER Height 160 cm (5' 3 ) 06/06/2019 11:01 AM PHARMACY DELIVERY DRIVER Body Mass Index 31 06/06/2019 11:01 AM PHARMACY DELIVERY DRIVER Care Teams Oil Field Operator Relationship Specialty Start Date End Date Shantel Wilson MD PCP - General Family Medicine 06/06/19
--- OUTSIDE RECORDS SUMMARY | 2024-06-07 09:17 | XMS_ITS | Clinical Summary ---
Author Organization [facility] [employer] Address [address] [place] [address] Care Team Providers Care Handkerchief Maker Name Role Phone Shantel Wilson MD Primary Care Provider [phone] Source Comments [facility] [employer],non-owned Affiliates and Associated Physician Practices is amultiple site organization consisting of ambulatory clinics and hospital sitesin [place], [place], [place] and [place]. This disclosure is being madepursuant to the Care Everywhere program and may not contain all information available regarding this patient. Last updated 18.[facility] [employer] Allergies No known active allergies Medications * Be aware that medications may not be up to date on this document. Alwaysverify current medications with the patient. Medication Sig Dispensed Refills Start Date End Date Status NIFEDIPINE PO Active LOSARTAN POTASSIUM PO Act thai GABAPENTIN PO Active DICLOFENAC PO Active Rosuvastatin Calcium 10 MG CPSP Active Social History Tobacco Use Types Packs/Day Years Used Date Smoking Tobacco: Never Smokeless Tobacco: Never Sex and Gender Information Value Date Recorded Sex Assigned at Not on file Gender Identity Not on file Sexual Orientation Not on file Last Filed Vital Signs Vital Sign Reading Time Taken Comments Blood Pressure 126/80 06/06/2019 11:01 AM EMERGENCY COMMUNICATIONS DISPATCHER Pulse 122 06/06/2019 11:01 AM EMERGENCY COMMUNICATIONS DISPATCHER Temperature 37.1 C (98.7 F) 06/06/2019 11:01 AM EMERGENCY COMMUNICATIONS DISPATCHER Respiratory Rate 16 06/06/2019 11:01 AM EMERGENCY COMMUNICATIONS DISPATCHER Oxygen Saturation 95% 06/06/2019 11:01 AM EMERGENCY COMMUNICATIONS DISPATCHER Inhaled Oxygen Concentration - - Weight 79.4 kg (175 lb) 06/06/2019 11:01 AM EMERGENCY COMMUNICATIONS DISPATCHER Height 160 cm (5' 3 ) 06/06/2019 11:01 AM EMERGENCY COMMUNICATIONS DISPATCHER Body Mass Index 31 06/06/2019 11:01 AM EMERGENCY COMMUNICATIONS DISPATCHER Plan of Treatment Health Maintenance Due Date Last Done Comments BONE DENSITY TESTING 1945 HEPATITIS C SCREENING 08/12/1965 DTAP/TDAP/TD VACCINES (1 - Tdap) 08/16/1966 PNEUMOCOCCAL VACCINE 50+ (1 of 1 - PCV) 08/16/1997 ZOSTER VACCINE (1 of 2) 08/16/1997 Respiratory Syncytial Virus (RSV) Vaccine Pt: or over 60 yrs (1 - 1-dose 75+ series) 08/16/2022 COVID-19 VACCINE (1 - 2023-2 5 season) 2023 INFLUENZA VACCINE (#1) 2023 DEPRESSION SCREENING 05/01/2024 MEDICARE AWV CALENDAR YEAR 2024 HEPATITIS B VACCINE Aged Out No longe r eligible based on patient's age to complete this topic HIB VACCINE Aged Out No longer eligi ble based on patient's age to complete this topic HPV VACCINE Aged Out No longer eligi ble based on patient's age to complete this topic MENINGOCOCCAL (Group B) VACCINE Aged Out No longer eligible based on patient's age to complete this topic MENINGOCOCCAL VACCINE Aged Out No tc marcus eligible based on patient's age to complete this topic Care Teams Handkerchief Maker Relationship Specialty Start Date End Date Shantel Wilson MD PCP - General Family Medicine 06/06/19
--- OUTSIDE RECORDS SUMMARY | 2024-06-07 09:17 | XMS_ITS | Referral Summary ---
Author Organization [facility] [employer] Address [address] [place] [address] Care Team Providers Care Composite Mechanic Name Role Phone Shantel Wilson MD Primary Care Provider [phone] Source Comments [facility] [employer],non-owned Affiliates and Associated Physician Practices is amultiple site organization consisting of ambulatory clinics and hospital sitesin [place], [place], [place] and [place]. This disclosure is being madepursuant to the Care Everywhere program and may not contain all information available regarding this patient. Last updated 18.[facility] [employer] Allergies No known active allergies Medications * [...] Comments Blood Pressure 126/80 06/06/2019 11:01 AM HAND ALTERATIONS SEAMSTRESS Pulse 122 06/06/2019 11:01 AM HAND ALTERATIONS SEAMSTRESS Temperature 37.1 C (98.7 F) 06/06/2019 11:01 AM HAND ALTERATIONS SEAMSTRESS Respiratory Rate 16 06/06/2019 11:01 AM HAND ALTERATIONS SEAMSTRESS Oxygen Saturation 95% 06/06/2019 11:01 AM HAND ALTERATIONS SEAMSTRESS Inhaled Oxygen Concentration - - Weight 79.4 kg (175 lb) 06/06/2019 11:01 AM HAND ALTERATIONS SEAMSTRESS Height 160 cm (5' 3 ) 06/06/2019 11:01 AM HAND ALTERATIONS SEAMSTRESS Body Mass Index 31 06/06/2019 11:01 AM HAND ALTERATIONS SEAMSTRESS Plan of Treatment Not on file Care Teams Composite Mechanic Relationship Specialty Start Date End Date Shantel Wilson MD PCP - General Family Medicine 06/06/19
--- OUTSIDE RECORDS SUMMARY | 2024-06-07 09:17 | XMS_ITS | Referral Summary ---
Author Organization [facility] [place] [address] [place] [address] Care Team Providers Care Rehabilitation Therapist Name Role Phone Shantel Wilson MD Primary Care Provider [phone] Allergies No known active allergies Medications cholecalciferol (VITAMIN D-3) 2000 unit tablet Take 2,000 tablets (4,000,000 Units total) by mouth daily Active vitamin S29-umglh acid 0.5-1 mg tablet Take 1,000 mg by mouth daily Active omega-3 fatty acids-fish oil 300-1,000 mg capsule Take 2 capsules (2 g total) by mouth daily Active gmr-H8-nwu83-zi wi-byo-dkzs-bor 600 mg calcium- 800 unit-50 mg tablet Take 600 mg by mouth daily Active aspirin 81 mg enteric coated tablet Take 1 tablet (81 mg total) by mouth daily Active omeprazole (PriLOSEC) 40 mg capsule Take 1 capsule (40 mg total) by mouth daily Active diclofenac DR (VOLTAREN) 50 mg EC tablet Take 1 tablet (50 mg total) by mouth 2 (two) times a day Active gabapentin (NEURONTIN) 300 mg capsule Take 1 capsule (300 mg total) by mouth 3 (three) times a day Active losartan (COZAAR) 25 mg tablet Take 1 tablet (25 mg total) by mouth daily Active levocetirizine (XYZAL) 5 mg tablet Take 1 tablet (5 mg total) by mouth every evening Active NIFEdipine (NIFEdipine CC) 30 mg 24 hr tablet Take 1 tablet (30 mg total) by mouth daily Active rosuvastatin (CRESTOR) 5 mg tablet Take 1 tablet (5 mg total) by mouth daily Active Active Problems Problem Noted Date Diagnosed Date Lymphedema 05/05/2023 Assessment & Plan (08/11/2023 11:34 AM CDT): Has been consistently wearing compression stockings and utilizing her pumps. Plan: Continue with daily compression stockings or Tubigrip and utilizing the compression pumps in the afternoon and in the evening. Follow-up as needed. Assessment & Plan (05/05/2023 12:57 PM CLINICAL TRIAL ASSOCIATE): Symptoms of chronic lower extremity edema left worse than right especially after a fall last year. Upon exam edema presents as lymphedema. Patient would benefit from daily compression therapy, following up lymphedema Clinic, lymphedema massages as well as lymphedema pumps. Discussed the plan with the patient who is agreeable. Follow up in 3 months for re-evaluation Plan: Patient has significant chronic lymphedema with hyperpigmentation and pain, has been utilizing compression therapy 20-30 mm of mercury for greater than 4 weeks, leg elevation, and exercise without improvement of symptoms. Patient also referred to lymphedema clinic and given instructions for continued daily use of compression therapy. Patient would also benefit from lymphedema pumps. Basal cell carcinoma (BCC) of face 07/06/2016 Actinic keratosis 07/29/2015 Social History Tobacco Use Types Packs/Day Years Used Date Smoking Tobacco: Never Tobacco Cessation:Counseling Given: Not Answered Comments Unknown Sex and Gender Information Value Date Recorded Sex Assigned at Not on file Legal Sex Female 3:16 AM CLINICAL TRIAL ASSOCIATE Gender Identity Female 04/28/2023 10:28 AM CLINICAL TRIAL ASSOCIATE Sexual Orientation Not on file Last Filed Vital Signs Vital Sign Reading Time Taken Comments Blood Pressure 127/80 08/09/2023 9:53 AM CDT Pulse 68 08/09/2023 9:53 AM CDT Temperature - - Respiratory Rate - - Oxygen Saturation 95% 08/09/2023 9:53 AM CDT Inhaled Oxygen Concentration - - Weight - - Height - - Body Mass Index - - Plan of Treatment Not on file [place] [address] [address] MEDICARE Care Teams Rehabilitation Therapist Relationship Specialty Start Date End Date Shantel Wilson MD PCP - General Family Medicine 03/14/23
--- OUTSIDE RECORDS SUMMARY | 2024-06-07 09:17 | XMS_ITS | Clinical Summary ---
Author Organization [facility] [place] [address] Address [facility] [place] [address] Care Team Providers Care Hand Or Machine Paster Name Role Phone Shantel Wilson MD Primary Care Provider [phone] Allergies No known active allergies Medications cholecalciferol (VITAMIN D-3) 2000 unit tablet Take 2,000 tablets (4,000,000 Units total) by mouth daily Active vitamin A19-yurit acid 0.5-1 mg tablet Take 1,000 mg by mouth daily Active omega-3 fatty acids-fish oil 300-1,000 mg capsule Take 2 capsules (2 g total) by mouth daily Active eao-T6-hht92-zi bp-xuo-fawf-bor 600 mg calcium- 800 unit-50 mg tablet [...] needed. 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 BCC (basal cell carcinoma), lip - (Added by TW Conv) Family History Medical History Relation Name Comments Skin cancer Brother Family history of skin cancer - (Added by TW Conv) Relation Name Status Comments Brother Social History Tobacco Use Types Packs/Day Years Used Date Smoking Tobacco: Never Tobacco Cessation:Counseling Given: Not Answered Comments Unknown Sex and Gender Information Value Date Recorded Sex Assigned at Not on file Legal Sex Female 3:16 AM FOOD SERVICE EMPLOYEE Gender Identity Female 04/28/2023 10:28 AM FOOD SERVICE EMPLOYEE Sexual Orientation Not on file Obstetrics History Last Filed Vital Signs Vital Sign Reading Time Taken Comments Blood Pressure 127/80 08/09/2023 9:53 AM CDT Pulse 68 08/09/2023 9:53 AM CDT Temperature - - Respiratory Rate - - Oxygen Saturation 95% 08/09/2023 9:53 AM CDT Inhaled Oxygen Concentration - - Weight - - Height - - Body Mass Index - - Plan of Treatment Health Maintenance Due Date Last Done Comments Depression Screening 1945 Fall Risk Assessment 1945 Hepatitis C Screening 1945 Osteoporosis Screening-Bone Density Scan 1945 DTaP/Tdap/Td Vaccine (1 - Tdap) 08/16/1958 Hepatitis B Screening 08/16/1965 Zoster Vaccine (1 of 2) 08/16/1997 Well Visit 65+ 08/16/2012 Influenza Vaccine (#1) 2023 3, 01/31/2022, 01/28/2021, Additional history exists Pneumococcal vaccine 65+ Completed 05/11/2016, 11/29 Insurance AET MEDICARE Care Teams Hand Or Machine Paster Relationship Specialty Start Date End Date Shantel Wilson MD PCP - General Family Medicine 03/14/23
== END 2024-06-07 08:55 | disposition home or self-care (01) ==
LOC: ANHIMG 08:56
PROVIDERS: PCP Family Medicine; Visit Provider Family Medicine
DX: Z12.31 Encounter for screening mammogram for malignant neoplasm of breast (principal)
CPT/HCPCS: 77063; 77067

== ENCOUNTER 2024-06-07 11:13 | Outpatient (CLI) | payer MEDICARE, SELFPAY ==
--- NOTE | ~2024-06-07 | US_ITS ---
EXAMINATION: US venous doppler UE LT DATE: 06/07/2024 12:10 INDICATION: Left upper limb swelling TECHNIQUE: Grayscale images without and with compression and Doppler images of the left upper extremi ty veins were obtained. COMPARISON: None. FINDINGS: The left internal jugular vein, subclavian vein, axillary vein, brachial vein, basilic vein, cephalic vein, radial vein, and ulnar vein are patent. IMPRESSION: 1. Patent left upper extremity veins. No evidence of venous thrombosis. Reviewed, dictated and finalized at location B. CTIVE CAPTAIN
--- OUTSIDE RECORDS SUMMARY | 2024-06-07 11:52 | XMS_ITS | Referral Summary ---
Author Organization [facility] [place] [address] [place] [address] Care Team Providers Care Biochemical Engineer Name Role Phone Shantel Wilson MD Primary Care Provider Allergies No known active allergies Medications cholecalciferol (VITAMIN D-3) 2000 unit tablet Take 2,000 tablets (4,000,000 Units total) by mouth daily Active vitamin W43-rlbxq acid 0.5-1 mg tablet Take 1,000 mg by mouth daily Active omega-3 fatty acids-fish oil 300-1,000 mg capsule Take 2 capsules (2 g total) by mouth daily Active ypb-M9-yxt35-zi ju-siv-aooj-bor 600 mg calcium- 800 unit-50 mg tablet [...] needed. 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
--- OUTSIDE RECORDS SUMMARY | 2024-06-07 11:52 | XMS_ITS | Clinical Summary ---
Author Organization [facility] [place] [address] [facility] [place] [address] Care Team Providers Care Auto Salvage Worker Name Role Phone Shantel Wilson MD Primary Care Provider [phone] Allergies No known active allergies Medications cholecalciferol (VITAMIN D-3) 2000 unit tablet Take 2,000 tablets (4,000,000 Units total) by mouth daily Active vitamin P89-iidku acid 0.5-1 mg tablet Take 1,000 mg by mouth daily Active omega-3 fatty acids-fish oil 300-1,000 mg capsule Take 2 capsules (2 g total) by mouth daily Active ggl-I5-xui09-zi sf-khx-porn-bor 600 mg calcium- 800 unit-50 mg tablet [...] needed. 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
--- OUTSIDE RECORDS SUMMARY | 2024-06-07 11:52 | XMS_ITS | Continuity of Care Document ---
Author Organization [facility] [place] Address [address] [facility] [address] [place] [address] Phone Care Team Providers Care Breaker Up Machine Operator Name Role Phone Boyce OD, Emre Unavailable Unavailable Procedures Procedure Date Eye Exam & Treatment Refraction Office/outpatient Visit, Est CL Replacement - Vistakon Disp W/BW Soft Tax - Medical Eye Exam, New Patient Refraction Advance Directives Directive Yes / No Effective Date File Name No Information Encounters Encounter Description Practice Location Reason(s) For Visit Diagnoses Date Provider Providers Copied on Encounter [facility], [address] [place] [address] [address], [place], [place], [id number], [place] tel:[phone] [facility] No Information Oct-1 3-201 0 Boyce OD Emre. [address], [place], [place], [facility], [place]. tel:[phone] Office/outpat ient Visit, Est [facility], [address] [place] [address] [address], [place], [place], [id number], [place] tel:[phone] [facility] No Information Oct-0 6-200 9 Boyce OD Emre. [address] [facility] , [address], [place], [address], [place]. tel:[phone] [facility], [address] [place] [address] [address], [place], [place], [id number], tel:[phone] SEC [facility] No Information 8-200 8 Boyce OD Emre. [address], [place], [address], [place]. tel:[phone] [facility], [address], [place], [place], [id number], tel:[phone] [facility] No Information 2-200 8 Boyce OD Emre. [address] [facility] , [address], [place], [address], [place]. tel:[phone] Family History Family Member Type Diagnosis Age At Onset No Information Payers Payer name Insurance type Covered alliance party ID Authorgwena everettparris(s) [employer] Plan CI [id number] Social History Type Description Quantity Date Captured [...]
--- OUTSIDE RECORDS SUMMARY | 2024-06-07 11:52 | XMS_ITS | Referral Summary ---
Author Organization [facility] [employer] Address [address] [facility] [place] [address] Care Team Providers Care Quantometer Operator Name Role Phone Shantel Wilson MD Primary Care Provider [phone] Source Comments [facility] [employer],non-owned Affiliates and Associated Physician Practices is amultiple site organization consisting of ambulatory clinics and hospital sitesin [place], [place], [place] and [place]. This disclosure is being madepursuant to the Care Everywhere program and may not contain all information available regarding this patient. Last updated 18.[facility] [employer] Allergies No known active allergies Medications * [...] Comments Blood Pressure 126/80 06/06/2019 11:01 AM VARNISHING UNIT TOOL SETTER Pulse 122 06/06/2019 11:01 AM VARNISHING UNIT TOOL SETTER Temperature 37.1 C (98.7 F) 06/06/2019 11:01 AM VARNISHING UNIT TOOL SETTER Respiratory Rate 16 06/06/2019 11:01 AM VARNISHING UNIT TOOL SETTER Oxygen Saturation 95% 06/06/2019 11:01 AM VARNISHING UNIT TOOL SETTER Inhaled Oxygen Concentration - - Weight 79.4 kg (175 lb) 06/06/2019 11:01 AM VARNISHING UNIT TOOL SETTER Height 160 cm (5' 3 ) 06/06/2019 11:01 AM VARNISHING UNIT TOOL SETTER Body Mass Index 31 06/06/2019 11:01 AM VARNISHING UNIT TOOL SETTER Plan of Treatment Not on file Care Teams Quantometer Operator Relationship Specialty Start Date End Date Shantel Wilson MD PCP - General Family Medicine 06/06/19
--- OUTSIDE RECORDS SUMMARY | 2024-06-07 11:52 | XMS_ITS | Clinical Summary ---
Author Organization [facility] [employer] Address [address] [facility] [place] [address] Care Team Providers Care Estate Conservator Name Role Phone Shantel Wilson MD Primary Care Provider [phone] Source Comments [facility] [employer]non-owned Affiliates and Associated Physician Practices is amultiple site organization consisting of ambulatory clinics and hospital sitesin [place], [place], [place] and [place]. This disclosure is being madepursuant to the Care Everywhere program and may not contain all information available regarding this patient. Last updated 18.[facility] [employer] Allergies No known active allergies Medications * [...] Comments Blood Pressure 126/80 06/06/2019 11:01 AM FISH TENDER Pulse 122 06/06/2019 11:01 AM FISH TENDER Temperature 37.1 C (98.7 F) 06/06/2019 11:01 AM FISH TENDER Respiratory Rate 16 06/06/2019 11:01 AM FISH TENDER Oxygen Saturation 95% 06/06/2019 11:01 AM FISH TENDER Inhaled Oxygen Concentration - - Weight 79.4 kg (175 lb) 06/06/2019 11:01 AM FISH TENDER Height 160 cm (5' 3 ) 06/06/2019 11:01 AM FISH TENDER Body Mass Index 31 06/06/2019 11:01 AM FISH TENDER Plan of Treatment Health Maintenance Due Date [...] age to complete this topic Care Teams Estate Conservator Relationship Specialty Start Date End Date Shantel Wilson MD PCP - General Family Medicine 06/06/19
--- OUTSIDE RECORDS SUMMARY | 2024-06-07 11:52 | XMS_ITS | Patient Health Summary ---
Author Organization [facility] Address [address] [place] [address] Care Team Providers Care Kennel Manager Dog Track Name Role Phone Shantel Wilson MD Primary Care Provider [phone] Note from [facility],non-owned Affiliates and Associated Physician Practices is amultiple site organization consisting of ambulatory clinics and hospital sitesin [place], [place], [place] and [place]. This disclosure is being madepursuant to the Care Everywhere program and may not contain all information available regarding this patient. Last updated 18.[facility] Allergies No known active allergies Medications * [...] Comments Blood Pressure 126/80 06/06/2019 11:01 AM IT ANALYST Pulse 122 06/06/2019 11:01 AM IT ANALYST Temperature 37.1 C (98.7 F) 06/06/2019 11:01 AM IT ANALYST Respiratory Rate 16 06/06/2019 11:01 AM IT ANALYST Oxygen Saturation 95% 06/06/2019 11:01 AM IT ANALYST Inhaled Oxygen Concentration - - Weight 79.4 kg (175 lb) 06/06/2019 11:01 AM IT ANALYST Height 160 cm (5' 3 ) 06/06/2019 11:01 AM IT ANALYST Body Mass Index 31 06/06/2019 11:01 AM IT ANALYST Care Teams Kennel Manager Dog Track Relationship Specialty Start Date End Date Shantel Wilson MD PCP - General Family Medicine 06/06/19
== END 2024-06-07 11:14 | disposition home or self-care (01) ==
PROVIDERS: PCP Family Medicine; Visit Provider Physician Assistant Surgical
DX: R60.0 Localized edema (principal)
CPT/HCPCS: 93971

== ENCOUNTER 2024-07-02 07:40 | Outpatient (CLI) | payer MEDICARE, SELFPAY | END 2024-07-02 07:41 | disposition home or self-care (01) | LOC: ANHCARD 07:41 | PROVIDERS: PCP Family Medicine; Visit Provider Family Medicine | DX: R94.31 Abnormal electrocardiogram [ECG] [EKG] (principal); I10 Essential (primary) hypertension | CPT/HCPCS: 78452; 93017; A9502; J2785 ==